=== PATIENT | male | born 1980 | race African-American/Black ===

== ENCOUNTER 2021-09-18 19:48 | Emergency (ER) | payer OTHER ==
[~2021-09-18] VITALS: Ht 172.7 cm; Wt 132.0 kg
[2021-09-18] MEDS ORDERED: CYCLOBENZAPRINE10 MG PO (21:30)
[2021-09-18] MEDS ORDERED: NAPROXEN500 MG PO (21:30)
[2021-09-18 23:24] VITALS: BP 149/84
== END 2021-09-18 23:42 | disposition home or self-care (01) | DRG 605 ==
LOC: ED 19:48
PROC: 0HQ1XZZ Repair Face Skin, External Approach (ICD-10-PCS; principal; 2021-09-18)
DX: S00.81XA Abrasion of other part of head, initial encounter (principal); M51.86 Other intervertebral disc disorders, lumbar region; V49.40XA Driver injured in collision with unspecified motor vehicles in traffic accident, initial encounter